=== PATIENT | male | born 1950 | race Two or more races ===

== ENCOUNTER 2018-09-04 12:58 | Emergency (ER) | payer OTHER ==
[~2018-09-04] VITALS: Ht 170.2 cm; Wt 71.2 kg
[2018-09-04] MEDS ORDERED: DIOVAN HCT 1601 EACH (13:06)
== END 2018-09-04 17:49 | disposition home or self-care (01) ==
LOC: ER 12:58 → CPU-OBS 13:33 → ER 17:49
DX: R07.89 Other chest pain (principal); S29.011A Strain of muscle and tendon of front wall of thorax, initial encounter; X50.0XXA Overexertion from strenuous movement or load, initial encounter; Y93.F2 Activity, caregiving, lifting; Y92.89 Other specified places as the place of occurrence of the external cause; Y99.8 Other external cause status

== ENCOUNTER 2021-03-03 07:58 | Outpatient (CLI) | payer OTHER ==
[~2021-03-03 07:58] MED LIST: DIOVAN HCT 1601 EACH
== END 2021-03-03 08:00 | disposition home or self-care (01) ==
LOC: NUCLEAR 07:58
PROVIDERS: ATTEND Internal Medicine Endocrinology, Diabetes & Metabolism
DX: E05.01 Thyrotoxicosis with diffuse goiter with thyrotoxic crisis or storm (principal)
CPT/HCPCS: 78012; A9531

== ENCOUNTER 2021-03-04 07:56 | Outpatient (CLI) | payer OTHER | END 2021-03-04 08:23 | disposition home or self-care (01) | LOC: NUCLEAR 07:56 | PROVIDERS: ATTEND Internal Medicine Endocrinology, Diabetes & Metabolism | DX: E05.01 Thyrotoxicosis with diffuse goiter with thyrotoxic crisis or storm (principal) | CPT/HCPCS: 78013; A9512 ==